=== PATIENT | male | born 1960 | race Two or more races ===

== ENCOUNTER 2020-09-06 11:26 | Emergency (ER) | payer SELFPAY ==
[~2020-09-06] VITALS: Ht 188 cm; Wt 95.3 kg
[2020-09-06] MEDS ORDERED: SODIUM CHLORIDE 0.9% 1,000 ML IV ONE (12:00)
[2020-09-06 12:07] LABS: Basophils # (auto) 0.1 10 ^3/uL (0-0.2); Basophils % (auto) 0.6 % (0.0-2.0); Eosinophils # (auto) 0.1 10 ^3/uL (0-0.8); Eosinophils % (auto) 0.5 % (0.0-7.0); Hematocrit 44.8 % (41.0-53.0); Hemoglobin 15.6 g/dL (13.5-17.5); Lymphocytes # (auto) 1.9 10 ^3/uL (0.4-5.4); Lymphocytes % (auto) 20.8 % (10.0-50.0); Mean Corpuscular Hgb Conc. 34.8 g/dL (32.0-36.0); Mean Corpuscular Volume 94.9 fL (80.0-100.0); Monocytes # (auto) 0.7 10 ^3/uL (0-1.3); Monocytes % (auto) 7.6 % (0.0-12.0); Neutrophils # (auto) 6.6 10 ^3/uL (1.6-8.6); Neutrophils % (auto) 70.5 % (37.0-80.0); Platelet Count (auto) 194 10^3/uL (140-450); Red Blood Cells 4.72 10^6/uL (4.5-5.90); Red Cell Distribution Width 15.1 % (11.8-14.3); White Blood Cell 9.4 10^3/uL (4.4-10.8)
[2020-09-06 12:34] LABS: Chloride 111 mmol/L (98-107); Potassium 3.6 mmol/L (3.5-5.1); Sodium 141 mmol/L (136-145)
[2020-09-06 12:41] LABS: Alanine Aminotransferase 30 U/L (16-61); Albumin 3.7 g/dL (3.4-5.0); Alkaline Phosphatase 76 U/L (45-117); Anion Gap 7 (5-15); Aspartate Aminotransferase 22 U/L (15-37); BUN/Creatinine Ratio 16.7; Bilirubin, Total 0.5 mg/dL (0.2-1.0); Blood Alcohol < 3.0 mg/dL (0-5); Blood Urea Nitrogen 14 mg/dL (7-18); Calcium 9.5 mg/dL (8.5-10.1); Carbon Dioxide 23 mmol/L (21-32); GFR African American 120 mL/min; GFR Non-African American 99 mL/min; Glucose 107 mg/dL (74-106); Magnesium 2.4 mg/dL (1.6-2.6); Total Protein 7.2 g/dL (6.4-8.2)
[2020-09-06 12:48] LABS: Salicylate 4.4 mg/dL (2.8-20.0)
[2020-09-06 12:49] LABS: Acetaminophen < 2.0 ug/mL (10-30)
[2020-09-06 12:59] LABS: Urine Bacteria NONE SEEN /hpf (None Seen); Urine Blood Negative /uL (Negative); Urine Specific Gravity 1.018 (1.001-1.035); Urine WBC 1 /hpf (0 - 3)
[2020-09-06 13:10] LABS: Amphetamine Screen, Urine NEGATIVE (NEGATIVE); Barbiturate Scree,Urine NEGATIVE (NEGATIVE); Benzodiazephine Screen, Urine NEGATIVE (NEGATIVE); Cannabinoid Screen, Urine NEGATIVE (NEGATIVE); Cocaine Screen, Urine NEGATIVE (NEGATIVE); Opiate Scree,Urine NEGATIVE (NEGATIVE); Phencyclidine Screen, Urine NEGATIVE (NEGATIVE)
[2020-09-06 17:59] VITALS: BP 152/84
== END 2020-09-06 18:16 | disposition home or self-care (01) ==
LOC: ER 11:26 → EDBD 11:26 → ER 18:16
DX: R41.82 Altered mental status, unspecified (principal); R44.3 Hallucinations, unspecified; F17.210 Nicotine dependence, cigarettes, uncomplicated; I10 Essential (primary) hypertension; Z90.49 Acquired absence of other specified parts of digestive tract
CPT/HCPCS: 36415; 70450; 80053; 80307; 80320; 80329; 81001; 82140; 82962; 83735; 85025; 93005; 96360; 99285; J7030

== ENCOUNTER 2021-01-15 07:22 | Inpatient (IN) | payer MEDICAID, OTHER ==
[~2021-01-15] VITALS: Ht 180.3 cm; Wt 87.0 kg
[2021-01-15] MEDS: CLINDAMYCIN 600MG IV 50 ML IV SCH (01:00)
[2021-01-15 08:13] LABS: Basophils # (auto) 0.1 10 ^3/uL (0-0.2); Eosinophils # (auto) 0.2 10 ^3/uL (0-0.8); Eosinophils % (auto) 2.6 % (0.0-7.0); Hematocrit 35.1 % (41.0-53.0); Hemoglobin 11.7 g/dL (13.5-17.5); Lymphocytes # (auto) 1.9 10 ^3/uL (0.4-5.4); Lymphocytes % (auto) 24.1 % (10.0-50.0); Mean Corpuscular Hemoglobin 31.1 pg (28.0-32.0); Mean Corpuscular Hgb Conc. 33.3 g/dL (32.0-36.0); Mean Corpuscular Volume 93.4 fL (80.0-100.0); Monocytes # (auto) 0.9 10 ^3/uL (0-1.3); Monocytes % (auto) 11.3 % (0.0-12.0); Neutrophils # (auto) 4.8 10 ^3/uL (1.6-8.6); Red Blood Cells 3.76 10^6/uL (4.5-5.90); White Blood Cell 7.9 10^3/uL (4.4-10.8)
[2021-01-15] MEDS ORDERED: LIDOCAINE 2% JELLY 11ml (GLYDO) ONE (08:15)
[2021-01-15 08:39] LABS: Alanine Aminotransferase 26 U/L (16-61); Albumin 3.1 g/dL (3.4-5.0); Anion Gap 6 (5-15); Aspartate Aminotransferase 20 U/L (15-37); BUN/Creatinine Ratio 25.3; Blood Urea Nitrogen 22 mg/dL (7-18); Calcium 9.2 mg/dL (8.5-10.1); Carbon Dioxide 28 mmol/L (21-32); Chloride 108 mmol/L (98-107); GFR African American 115 mL/min; GFR Non-African American 95 mL/min; Glucose 100 mg/dL (74-106); Magnesium 2.3 mg/dL (1.6-2.6); Potassium 4.4 mmol/L (3.5-5.1); Sodium 142 mmol/L (136-145)
[2021-01-15 08:44] LABS: Alkaline Phosphatase 88 U/L (45-117); Bilirubin, Total 0.2 mg/dL (0.2-1.0); Total Protein 7.3 g/dL (6.4-8.2)
[2021-01-15] MEDS ORDERED: MORPHINE SULFATE INJECTION 2 MG/ML SYRG IV ONE ×2 (08:45→15:45)
[2021-01-15] MEDS ORDERED: SODIUM CHLORIDE 0.9% 500 ML IVB ONE ×2 (08:45→09:45)
[2021-01-15] MEDS ORDERED: ONDANSETRON HCL 4 MG/2 ML VIAL IV ONE (08:45)
[2021-01-15] MEDS ORDERED: SODIUM CHLORIDE 0.9% 1,000 ML IV ONE ×2 (08:45→09:45)
[2021-01-15 09:02] LABS: Urine Bacteria NONE SEEN /hpf (None Seen); Urine Blood 2+ /uL (Negative); Urine Budding Yeast OCCASIONAL /hpf (None Seen); Urine Mucus FEW (None Seen); Urine Specific Gravity 1.028 (1.001-1.035); Urine WBC 2 /hpf (0 - 3)
[2021-01-15 09:08] LABS: Alcohol, Urine < 3.0 mg/dL (0-10); Amphetamine Screen, Urine NEGATIVE (NEGATIVE); Barbiturate Scree,Urine NEGATIVE (NEGATIVE); Benzodiazephine Screen, Urine NEGATIVE (NEGATIVE); Cannabinoid Screen, Urine NEGATIVE (NEGATIVE); Cocaine Screen, Urine NEGATIVE (NEGATIVE); Opiate Scree,Urine POSITIVE (NEGATIVE); Phencyclidine Screen, Urine NEGATIVE (NEGATIVE)
[2021-01-15] MEDS ORDERED: HALOPERIDOL LACTATE 5 MG/ML INJ VIAL ONE (09:08)
[2021-01-15] MEDS ORDERED: HALOPERIDOL LACTATE 5 MG/ML INJ VIAL IM ONE ×2 (09:15→15:45)
[2021-01-15] MEDS ORDERED: LORazepam 2MG/ML-1ML VIAL IV ONE ×3 (09:45→15:45)
[2021-01-15 10:36] LABS: INR 1.07 (0.9-1.15); Partial Thromboplastin Time 24.6 sec (23.6-33.0)
[2021-01-15 11:04] LABS: Lactic Acid w/Reflex 3.8 mmol/L (0.4-2.0)
[2021-01-15] MEDS ORDERED: TRAZ50TA2 PO (15:29)
[2021-01-15] MEDS ORDERED: FERR-20 PO (15:29)
[2021-01-15] MEDS ORDERED: QUET25TA46 PO (15:29)
[2021-01-15] MEDS ORDERED: LEVE100S9 PO (15:29)
[2021-01-15] MEDS ORDERED: ASPI-498 PO (15:29)
[2021-01-15] MEDS ORDERED: ATOR40TA52 PO (15:29)
[2021-01-15] MEDS ORDERED: LISI-275 PO (15:29)
[2021-01-15] MEDS ORDERED: HYDR-4072 PO (15:29)
[2021-01-15] MEDS ORDERED: CARV25TA55 PO (15:29)
[2021-01-15] MEDS ORDERED: FUR20T PO (15:29)
[2021-01-15] MEDS ORDERED: THIAMINE 100mg/ml INJ (200mg/2ml VIAL) IV ONE (15:45)
[2021-01-15] MEDS ORDERED: ACETAMINOPHEN 325 MG TAB PO PRN (15:45)
[2021-01-15] MEDS ORDERED: HYDROcodone-ACET 5/325MG TAB PO PRN (15:45)
[2021-01-15] MEDS ORDERED: ALUM & MAG HYDROX-SIMETH LIQ(MAALOX) 30 ML PO PRN (15:45)
[2021-01-15] MEDS ORDERED: ASPirin 81 mg TAB PO ONE (15:45)
[2021-01-15] MEDS ORDERED: DOCUSATE SOD 100 MG CAP PO PRN (15:45)
[2021-01-15] MEDS ORDERED: hydrALAZINE HCL 20 MG/ML VL IV PRN (15:45)
[2021-01-15] MEDS ORDERED: QUEtiapine FUMARATE 25 MG TAB PO ONE (15:45)
[2021-01-15] MEDS ORDERED: ATORVASTATIN 20 MG TAB PO ONE (15:45)
[2021-01-15] MEDS ORDERED: METOPROLOL SUCCINATE XL 50 MG TAB PO ONE (15:45)
[2021-01-15] MEDS ORDERED: ENOXAPARIN SOD 40 MG/0.4 ML SYRINGE SC ONE (15:45)
[2021-01-15] MEDS ORDERED: LACTATED RINGER'S 1,000 ML IV ONE (15:45)
[2021-01-15] MEDS ORDERED: cefTRIAXone 1GM/50ML D5W 50 ML IV ONE (15:45)
[2021-01-15] MEDS ORDERED: IPRATROPIUM BROM 0.5 MG/2.5ML INH SOL NEB ONE (15:45)
[2021-01-15] MEDS ORDERED: MORPHINE SULFATE INJECTION 2 MG/ML SYRG IV PRN ×2 (15:45)
[2021-01-15] MEDS ORDERED: NITROGLYCERIN 0.4 MG SL TAB SL PRN (15:45)
[2021-01-15] MEDS ORDERED: LORazepam 0.5 MG TAB PO PRN (15:45)
[2021-01-15] MEDS ORDERED: ONDANSETRON HCL 4 MG/2 ML VIAL IV PRN (15:45)
[2021-01-15] MEDS ORDERED: CLINDAMYCIN 600MG IV 50 ML IV ONE (15:45)
[2021-01-15] MEDS: SODIUM CHLORIDE 0.9% 1,000 ML IV SCH (15:57)
[2021-01-15] MEDS ORDERED: LORazepam 2MG/ML-1ML VIAL IV PRN ×2 (17:00→20:45)
[2021-01-15] MEDS: FUROSEMIDE 20 MG/2 ML VIAL IV SCH (17:13)
[2021-01-15] MEDS ORDERED: IPRATROPIUM BROM 0.5 MG/2.5ML INH SOL NEB SCH (18:00)
[2021-01-15 21:08] LABS: Magnesium 1.9 mg/dL (1.6-2.6); Phosphorus 2.6 mg/dL (2.5-4.90)
[2021-01-15] MEDS ORDERED: diphenhdrAMINE HCL 50 MG/1 ML VL IV ONE (21:45)
[2021-01-15] MEDS: HALOPERIDOL LACTATE 5 MG/ML INJ VIAL IM PRN (21:59)
[2021-01-15] MEDS: ATORVASTATIN 20 MG TAB PO SCH (22:00)
[2021-01-15] MEDS: LACOSAMIDE 100 MG in SODIUM CHL 0.9% 100 ML IV SCH (22:00)
[2021-01-16] MEDS: CLINDAMYCIN 600MG IV 50 ML IV SCH ×2 (06:20→14:13)
[2021-01-16] MEDS: FUROSEMIDE 20 MG/2 ML VIAL IV SCH ×2 (06:21→18:16)
[2021-01-16] MEDS: HALOPERIDOL LACTATE 5 MG/ML INJ VIAL IM PRN (07:58)
[2021-01-16] MEDS: SODIUM CHLORIDE 0.9% 1,000 ML IV SCH (09:49)
[2021-01-16] MEDS: cefTRIAXone 1GM/50ML D5W 50 ML IV SCH (09:49)
[2021-01-16] MEDS: ASPirin 81 mg TAB PO SCH (10:00)
[2021-01-16] MEDS: LISINOPRIL 5 MG TAB PO SCH (10:00)
[2021-01-16] MEDS: METOPROLOL SUCCINATE XL 50 MG TAB PO SCH (10:00)
[2021-01-16] MEDS: ENOXAPARIN SOD 40 MG/0.4 ML SYRINGE SC SCH (10:07)
[2021-01-16] MEDS: LACOSAMIDE 100 MG in SODIUM CHL 0.9% 100 ML IV SCH ×2 (10:14→21:00)
[2021-01-16] MEDS: LORazepam 2MG/ML-1ML VIAL IV PRN (13:53)
[2021-01-16] MEDS ORDERED: hydrALAZINE HCL 20 MG/ML VL IV PRN (14:30)
[2021-01-16 16:22] VITALS: BP 157/90
[2021-01-16 22:00] VITALS: BP 167/90
[2021-01-16] MEDS: ATORVASTATIN 20 MG TAB PO SCH (22:30)
[2021-01-17] MEDS: SODIUM CHLORIDE 0.9% 1,000 ML IV SCH ×2 (01:05→18:54)
[2021-01-17 05:00] VITALS: BP 152/97
[2021-01-17] MEDS: FUROSEMIDE 20 MG/2 ML VIAL IV SCH (06:16)
[2021-01-17 06:31] LABS: Basophils # (auto) 0 10 ^3/uL (0-0.2); Basophils % (auto) 0.1 % (0.0-2.0); Eosinophils # (auto) 0 10 ^3/uL (0-0.8); Hematocrit 28.2 % (41.0-53.0); Hemoglobin 9.5 g/dL (13.5-17.5); Lymphocytes # (auto) 1.6 10 ^3/uL (0.4-5.4); Lymphocytes % (auto) 8.3 % (10.0-50.0); Mean Corpuscular Hemoglobin 31.5 pg (28.0-32.0); Mean Corpuscular Hgb Conc. 33.5 g/dL (32.0-36.0); Mean Corpuscular Volume 94.2 fL (80.0-100.0); Monocytes # (auto) 1.8 10 ^3/uL (0-1.3); Monocytes % (auto) 9.7 % (0.0-12.0); Neutrophils # (auto) 15.3 10 ^3/uL (1.6-8.6); Neutrophils % (auto) 81.9 % (37.0-80.0); Red Cell Distribution Width 16.3 % (11.8-14.3); White Blood Cell 18.7 10^3/uL (4.4-10.8)
[2021-01-17 06:33] LABS: Potassium 3.8 mmol/L (3.5-5.1)
[2021-01-17 07:03] LABS: Albumin 2.6 g/dL (3.4-5.0); BUN/Creatinine Ratio 22.4; Bilirubin, Total 0.3 mg/dL (0.2-1.0); Calcium 9.4 mg/dL (8.5-10.1); Magnesium 2.3 mg/dL (1.6-2.6); Total Protein 6.8 g/dL (6.4-8.2)
[2021-01-17 08:19] LABS: INR 1.2 (0.9-1.15)
[2021-01-17 09:00] VITALS: BP 155/95
[2021-01-17] MEDS: cefTRIAXone 1GM/50ML D5W 50 ML IV SCH (09:30)
[2021-01-17] MEDS: ENOXAPARIN SOD 40 MG/0.4 ML SYRINGE SC SCH (09:35)
[2021-01-17] MEDS: METOPROLOL SUCCINATE XL 50 MG TAB PO SCH (09:37)
[2021-01-17] MEDS: LISINOPRIL 5 MG TAB PO SCH (09:37)
[2021-01-17] MEDS: ASPirin 81 mg TAB PO SCH (09:37)
[2021-01-17] MEDS: LACOSAMIDE 100 MG in SODIUM CHL 0.9% 100 ML IV SCH ×2 (11:00→21:02)
[2021-01-17 12:45] VITALS: BP 151/101
[2021-01-17] MEDS ORDERED: SODIUM CHLORIDE 0.9% 1,000 ML IV SCH (15:00)
[2021-01-17] MEDS ORDERED: CARVEDILOL 12.5 MG TAB PO ONE (15:00)
[2021-01-17] MEDS ORDERED: LACTULOSE 20Gm/30ML SOLN PO PRN (16:00)
[2021-01-17 16:39] VITALS: BP 147/75
[2021-01-17] MEDS ORDERED: hydrALAZINE HCL 25 MG TAB PO SCH (18:00)
[2021-01-17] MEDS ORDERED: Jevity 1.2 Cal/Fiber 1 Liter GT SCH (18:00)
[2021-01-17] MEDS ORDERED: LACTULOSE 20Gm/30ML SOLN PEG PRN (21:15)
[2021-01-17] MEDS ORDERED: ACETAMINOPHEN 650 mg PER 20.3 mL UD PEG PRN (21:30)
[2021-01-17] MEDS ORDERED: ALUM & MAG HYDROX-SIMETH LIQ(MAALOX) 30 ML PEG PRN (21:30)
[2021-01-17 22:00] VITALS: BP 129/69
[2021-01-17] MEDS ORDERED: QUEtiapine FUMARATE 25 MG TAB PO SCH (22:00)
[2021-01-17] MEDS ORDERED: CARVEDILOL 12.5 MG TAB PO SCH (22:00)
[2021-01-17] MEDS: LORazepam 2MG/ML-1ML VIAL IV PRN (22:16)
[2021-01-17] MEDS: DOCUSATE ORAL LIQUID 100 MG/10 ML UD GT SCH (22:16)
[2021-01-17] MEDS: QUEtiapine FUMARATE 25 MG TAB PEG SCH (22:18)
[2021-01-17] MEDS: ATORVASTATIN 20 MG TAB PEG SCH (22:18)
[2021-01-17] MEDS: CARVEDILOL 12.5 MG TAB PEG SCH (22:32)
[2021-01-18] VITALS (7 sets, daily range): BP systolic 98–123; BP diastolic 60–71
[2021-01-18] MEDS: hydrALAZINE HCL 25 MG TAB PEG SCH ×2 (00:30→06:00)
[2021-01-18] MEDS: HYDROcodone-ACET 5/325MG TAB PEG PRN (02:46)
[2021-01-18 04:50] LABS: Basophils # (auto) 0 10 ^3/uL (0-0.2); Basophils % (auto) 0.2 % (0.0-2.0); Eosinophils # (auto) 0 10 ^3/uL (0-0.8); Hemoglobin 7.4 g/dL (13.5-17.5); Lymphocytes # (auto) 1.4 10 ^3/uL (0.4-5.4); Red Blood Cells 2.43 10^6/uL (4.5-5.90); Red Cell Distribution Width 16.6 % (11.8-14.3)
[2021-01-18 04:51] LABS: Hematocrit 22.3 % (41.0-53.0); Lymphocytes % (auto) 7.6 % (10.0-50.0); Mean Corpuscular Hemoglobin 30.5 pg (28.0-32.0); Mean Corpuscular Hgb Conc. 33.2 g/dL (32.0-36.0); Mean Corpuscular Volume 91.8 fL (80.0-100.0); Monocytes # (auto) 2.1 10 ^3/uL (0-1.3); Monocytes % (auto) 10.9 % (0.0-12.0); Neutrophils # (auto) 15.6 10 ^3/uL (1.6-8.6); Neutrophils % (auto) 81.3 % (37.0-80.0); White Blood Cell 19.1 10^3/uL (4.4-10.8)
[2021-01-18 05:06] LABS: Calcium 9.1 mg/dL (8.5-10.1)
[2021-01-18 05:08] LABS: BUN/Creatinine Ratio 18.2
[2021-01-18 05:13] LABS: INR 1.16 (0.9-1.15)
[2021-01-18] MEDS: SODIUM CHLORIDE 0.9% 1,000 ML IV SCH (05:18)
[2021-01-18] MEDS ORDERED: ASPirin 81 mg TAB PEG SCH (10:00)
[2021-01-18] MEDS: cefTRIAXone 1GM/50ML D5W 50 ML IV SCH (10:15)
[2021-01-18] MEDS: DOCUSATE ORAL LIQUID 100 MG/10 ML UD GT SCH ×2 (10:27→22:19)
[2021-01-18] MEDS: QUEtiapine FUMARATE 25 MG TAB PEG SCH ×2 (10:28→22:19)
[2021-01-18] MEDS: ENOXAPARIN SOD 40 MG/0.4 ML SYRINGE SC SCH (10:28)
[2021-01-18] MEDS: CARVEDILOL 12.5 MG TAB PEG SCH ×2 (10:36→22:18)
[2021-01-18] MEDS ORDERED: SOD CHL 0.45% 1,000 ML IV SCH ×2 (11:15→11:30)
[2021-01-18] MEDS: LACOSAMIDE 100 MG in SODIUM CHL 0.9% 100 ML IV SCH ×3 (11:36→21:00)
[2021-01-18] MEDS ORDERED: AZITHROMYCIN 500MG/ 250ML 250 ML IV ONE (14:30)
[2021-01-18] MEDS ORDERED: FUROSEMIDE 20 MG/2 ML VIAL IV ONE (14:30)
[2021-01-18 15:04] LABS: Basophils # (auto) 0 10 ^3/uL (0-0.2); Basophils % (auto) 0.1 % (0.0-2.0); Eosinophils # (auto) 0 10 ^3/uL (0-0.8); Hematocrit 25.7 % (41.0-53.0); Hemoglobin 8.6 g/dL (13.5-17.5); Lymphocytes # (auto) 1.3 10 ^3/uL (0.4-5.4); Mean Corpuscular Hemoglobin 31.2 pg (28.0-32.0); Mean Corpuscular Hgb Conc. 33.3 g/dL (32.0-36.0); Mean Corpuscular Volume 93.5 fL (80.0-100.0); Monocytes % (auto) 9.8 % (0.0-12.0); Neutrophils % (auto) 77.1 % (37.0-80.0); Nucleated Red Blood Cells % 0.1 %; Red Blood Cells 2.75 10^6/uL (4.5-5.90); Red Cell Distribution Width 16.6 % (11.8-14.3); White Blood Cell 10.4 10^3/uL (4.4-10.8)
[2021-01-18] MEDS: PANTOPRAZOLE 40 MG/10 ML VIAL INJ IV SCH ×2 (15:16→22:19)
[2021-01-18 15:31] LABS: Albumin 2.5 g/dL (3.4-5.0); Potassium 4.7 mmol/L (3.5-5.1)
[2021-01-18 15:35] LABS: Bilirubin, Total 0.2 mg/dL (0.2-1.0); Total Protein 6.3 g/dL (6.4-8.2)
[2021-01-18] MEDS: LORazepam 2MG/ML-1ML VIAL IV PRN (20:58)
[2021-01-18] MEDS ORDERED: PANTOPRAZOLE 40 MG/10 ML VIAL INJ IV SCH (22:00)
[2021-01-18] MEDS: ATORVASTATIN 20 MG TAB PEG SCH (22:17)
[2021-01-19] MEDS: LORazepam 2MG/ML-1ML VIAL IV PRN ×3 (00:59→11:20)
[2021-01-19 05:00] VITALS: BP 127/71
[2021-01-19 05:03] LABS: Basophils # (auto) 0 10 ^3/uL (0-0.2); Basophils % (auto) 0.2 % (0.0-2.0); Eosinophils # (auto) 0 10 ^3/uL (0-0.8); Hemoglobin 7.9 g/dL (13.5-17.5); Mean Corpuscular Hgb Conc. 33.8 g/dL (32.0-36.0); Nucleated Red Blood Cells % 0.1 %; White Blood Cell 11.3 10^3/uL (4.4-10.8)
[2021-01-19 05:05] LABS: Eosinophils % (auto) 0.2 % (0.0-7.0); Hematocrit 23.3 % (41.0-53.0); Lymphocytes # (auto) 1.7 10 ^3/uL (0.4-5.4); Lymphocytes % (auto) 15.3 % (10.0-50.0); Mean Corpuscular Hemoglobin 30.9 pg (28.0-32.0); Mean Corpuscular Volume 91.6 fL (80.0-100.0); Monocytes # (auto) 1.8 10 ^3/uL (0-1.3); Monocytes % (auto) 15.6 % (0.0-12.0); Neutrophils # (auto) 7.8 10 ^3/uL (1.6-8.6); Neutrophils % (auto) 68.7 % (37.0-80.0); Red Blood Cells 2.54 10^6/uL (4.5-5.90); Red Cell Distribution Width 16.2 % (11.8-14.3)
[2021-01-19] MEDS: HYDROcodone-ACET 5/325MG TAB PEG PRN ×2 (05:18→09:48)
[2021-01-19 05:32] LABS: Albumin 2.3 g/dL (3.4-5.0); Calcium 9.3 mg/dL (8.5-10.1); Potassium 4.4 mmol/L (3.5-5.1)
[2021-01-19 05:34] LABS: BUN/Creatinine Ratio 15.5
[2021-01-19 05:36] LABS: Bilirubin, Total 0.3 mg/dL (0.2-1.0); Total Protein 6.1 g/dL (6.4-8.2)
[2021-01-19 09:08] VITALS: BP 122/76
[2021-01-19] MEDS ORDERED: FUROSEMIDE 20 MG/2 ML VIAL IV ONE (09:30)
[2021-01-19] MEDS: DOCUSATE ORAL LIQUID 100 MG/10 ML UD GT SCH (09:47)
[2021-01-19] MEDS: PANTOPRAZOLE 40 MG/10 ML VIAL INJ IV SCH (09:48)
[2021-01-19] MEDS: cefTRIAXone 1GM/50ML D5W 50 ML IV SCH (09:48)
[2021-01-19] MEDS: QUEtiapine FUMARATE 25 MG TAB PEG SCH (09:48)
[2021-01-19] MEDS: CARVEDILOL 12.5 MG TAB PEG SCH (09:50)
[2021-01-19] MEDS ORDERED: AZITHROMYCIN 500MG/ 250ML 250 ML IV SCH (10:00)
[2021-01-19 13:00] VITALS: BP 108/57
[2021-01-19] MEDS: LACOSAMIDE 100 MG in SODIUM CHL 0.9% 100 ML IV SCH (13:45)
[2021-01-19] MEDS ORDERED: D5W 5% 1,000 ML IV SCH (14:15)
== END 2021-01-19 19:12 | DRG 720 ==
LOC: EDBD 07:22 → ER 07:22 → TELE 15:44 → TELE-CENTR 01-16 15:40 → CENTRAL 01-17 16:36
PROVIDERS: ADMIT Hospitalist; ATTEND Internal Medicine
PROC: 05H933Z Insertion of Infusion Device into Right Brachial Vein, Percutaneous Approach (ICD-10-PCS; 2021-01-15)
PROC: B54MZZA Ultrasonography of Right Upper Extremity Veins, Guidance (ICD-10-PCS; 2021-01-15)
PROC: 30233N1 Transfusion of Nonautologous Red Blood Cells into Peripheral Vein, Percutaneous Approach (ICD-10-PCS; principal; 2021-01-18)
DX: A41.9 Sepsis, unspecified organism (principal); N17.0 Acute kidney failure with tubular necrosis; J69.0 Pneumonitis due to inhalation of food and vomit; G92 Toxic encephalopathy; I50.31 Acute diastolic (congestive) heart failure; E43 Unspecified severe protein-calorie malnutrition; G40.901 Epilepsy, unspecified, not intractable, with status epilepticus; D62 Acute posthemorrhagic anemia; E88.09 Other disorders of plasma-protein metabolism, not elsewhere classified; Z66 Do not resuscitate; R07.89 Other chest pain; Z93.1 Gastrostomy status; F23 Brief psychotic disorder; F32.9 Major depressive disorder, single episode, unspecified; F09 Unspecified mental disorder due to known physiological condition; Z20.822 Contact with and (suspected) exposure to COVID-19; E78.5 Hyperlipidemia, unspecified; E87.0 Hyperosmolality and hypernatremia; F17.210 Nicotine dependence, cigarettes, uncomplicated; I13.0 Hypertensive heart and chronic kidney disease with heart failure and stage 1 through stage 4 chronic kidney disease, or unspecified chronic kidney disease; J98.11 Atelectasis; N18.9 Chronic kidney disease, unspecified; Z68.23 Body mass index [BMI] 23.0-23.9, adult; Z79.82 Long term (current) use of aspirin; Z74.01 Bed confinement status; Z79.899 Other long term (current) drug therapy; Z86.79 Personal history of other diseases of the circulatory system; Z95.1 Presence of aortocoronary bypass graft
CPT/HCPCS: 36415; 70450; 71045; 71250; 74176; 80048; 80053; 80061; 80307; 80320; 81001; 82140; 82270; 82550; 83036; 83605; 83690; 83735; 83880; 84100; 84146; 84443; 84484; 85025; 85379; 85610; 85730; 86850; 86900; 86901; 86920; 87040; 87086; 87426; 92610; 93005; 93306; 94640; 96361; 96374; 96375; 96376; 97110; 97163; 99291; C9113; C9254; G0378; J0696; J2405; J3490; J7060